=== PATIENT | female | born 1975 | race Caucasian/White ===

== ENCOUNTER 2018-06-27 07:36 | Emergency (ER) | payer OTHER ==
[~2018-06-27] VITALS: Ht 170.2 cm; Wt 56.7 kg
[2018-06-27] MEDS ORDERED: AMOX1TAB5 PO (09:29)
== END 2018-06-27 09:40 | disposition home or self-care (01) ==
LOC: ER 07:36
DX: S81.851A Open bite, right lower leg, initial encounter (principal); W54.0XXA Bitten by dog, initial encounter; Y93.89 Activity, other specified; Y92.89 Other specified places as the place of occurrence of the external cause; Y99.8 Other external cause status

== ENCOUNTER 2021-01-22 08:00 | Outpatient (CLI) | payer OTHER ==
[~2021-01-22 08:00] MED LIST: AMOX1TAB5 PO
== END 2021-01-22 08:30 | disposition home or self-care (01) ==
LOC: PPH VACUNA 08:00
DX: Z23 Encounter for immunization (principal)

== ENCOUNTER 2021-02-11 08:00 | Outpatient (CLI) | payer OTHER | END 2021-02-11 08:30 | disposition home or self-care (01) | LOC: PPH VACUNA 08:00 | DX: Z23 Encounter for immunization (principal) ==

== ENCOUNTER 2021-11-23 07:29 | Inpatient (IN) | payer OTHER ==
[~2021-11-23] VITALS: Ht 167.6 cm; Wt 49.9 kg
== END 2021-12-05 16:44 | disposition home or self-care (01) | DRG 433 ==
LOC: ER 07:29 → SEC-K 22:59 → MEDI 22:59
PROVIDERS: ADMIT Internal Medicine; ATTEND Internal Medicine
PROC: BW21YZZ Computerized Tomography (CT Scan) of Abdomen and Pelvis using Other Contrast (ICD-10-PCS; 2021-11-23)
PROC: BF37ZZZ Magnetic Resonance Imaging (MRI) of Pancreas (ICD-10-PCS; 2021-11-24)
PROC: B54DZZZ Ultrasonography of Bilateral Lower Extremity Veins (ICD-10-PCS; 2021-12-01)
PROC: 0W9G3ZZ Drainage of Peritoneal Cavity, Percutaneous Approach (ICD-10-PCS; principal; 2021-12-05)
DX: K70.31 Alcoholic cirrhosis of liver with ascites (principal); K80.00 Calculus of gallbladder with acute cholecystitis without obstruction; F10.20 Alcohol dependence, uncomplicated; K70.0 Alcoholic fatty liver; Z20.822 Contact with and (suspected) exposure to COVID-19; D72.828 Other elevated white blood cell count

== ENCOUNTER → 2022-09-01 | Emergency (ER) | payer OTHER ==
[~2022-09-01] VITALS: Ht 167.6 cm; Wt 49.4 kg
== END | disposition left against medical advice (07) ==
LOC: ER 13:37
DX: Z53.21 Procedure and treatment not carried out due to patient leaving prior to being seen by health care provider (principal)